=== PATIENT | male | born 1950 | race Caucasian/White ===

== ENCOUNTER 2017-10-07 14:36 | Emergency (ER) | payer MEDICARE, OTHER, SELFPAY ==
[2017-10-07 14:40] VITALS: BP 123/80; PULSE 80; RESP 18; TEMP 36.7; O2SAT 96; BMI 27.4
--- NOTE | 2017-10-07 14:44 | HMH.EDSKAF ---
ED Disposition Clinical Impression: Infected skin graft Disposition: Home, Self-Care Condition on Discharge: Fair Instructions: DI for Skin Abscess Additional Instructions: 1- wet to dry the wound twice a day. 2- start levaquin 500 mg daily. 3- call the crane mechanic in am for an earlier appointment. 4- see pcp in am for a wound recheck. Prescriptions: levoFLOXacin [Levaquin 500mg tab] 500 mg PO DAILY #10 tab - Critical Care Critical Care Time: No Attestation: On , the high probability of a clinically significant, sudden or life threatening deterioration of the following system(s) required my full and direct attention, intervention and personal management. The time I documented below is in addition to time spent performing reported procedures but includes the following listed in this critical care notation. Medical Decision Making - Medical Records Medical records reviewed: Yes: I reviewed the patient's medical records. Vital Signs: 10/07/17 14:40 Temperature 98.1 F Temperature Source Temporal Artery Scan Pulse Rate [Right Brachial] 80 Respiratory Rate 18 Blood Pressure [Right Arm] 123/80 Blood Pressure Mean [Right Arm] 94 Blood Pressure Source [Right Arm] Automatic Cuff Blood Pressure Position [Right Arm] Sitting 02 Sat by Pulse Oximetry 96 Oxygen Delivery Method Room Air - Lab Data Lab Results 10/07/17 14:50: WBC 11.8 H, RBC 5.26, Hgb 15.3, Hct 46.7, MCV 88.8, MCH 29.1, MCHC 32.8, RDW 13.0, Plt Count 396, MPV 6.8 L, Neut % (Auto) 69.1, Lymph % (Auto) 23.2, [place] % (Auto) 5.2, Eos % (Auto) 2.2, Baso % (Auto) 0.3, Neut # (Auto) 8.2 H, Lymph # (Auto) 2.7, [place] # (Auto) 0.6, Eos # (Auto) 0.3, Baso # (Auto) 0.0 10/07/17 14:50: Lactic Acid 1.2 10/07/17 14:50: Sodium 144, Potassium 3.9, Chloride 107, Carbon Dioxide 28, Anion Gap 12.9, BUN 13, Creatinine 1.06, Estimated Creat Clear 73, Estimated GFR 69, Est GFR ( Amer) 84, Glucose 119 H Result diagrams: 10/07/17 14:50 10/07/17 14:50 Orders (Tests/Meds): ED MEDICATIONS Generic Name Dose Route Start Last Admin Trade Name Rickey PRN Reason Stop Dose Admin Levofloxacin/Dextrose 500 mg in 100 mls @ 100 mls/hr 10/07/17 14:43 10/07/17 15:09 Levaquin 500mg/100ml Premix IV 10/07/17 15:42 100 mls/hr PREOP ONE Administration Protocol ORDERS Category Date Time Status Abscess Culture & Gram Stain Stat Micro 10/07/17 14:50 Received Blood Culture Stat Micro 10/07/17 14:50 Received - Chilo Inquiry Pt receiving controlled substance: No Chilo was queried for this patient: No Medical Decision Making Narrative: The patient remained stable there is no new findings I discussed with him his wound care, the need for earlier follow up tomorrwo and start a new antibiotics, he verbalized understanding. Skin/Abscess/FB HPI - General Stated complaint: skin - History of Present Illness HPI narrative: 67 years old male with history of psychiatric disorders and basal cell carcinoma status post the skin graft to the left shoulder lesion, he had a postop skin infection of the graft site started on Keflex that he finished after one week. He was seen by his crane mechanic on October 02 scheduled follow-up with them on October 11 at 11:30 AM. Brought from [facility] because the wound is infected. He has no fever no chills no generalized symptoms. MD complaint: other (infected skin graft) Onset (ago): week(s) (3 weeks) Location: LUE (Left shoulder area.) Consistency: constant Relieving factors: none Exacerbating factors: none Associated symptoms: denies other symptoms Treatments prior to arrival: other (He finished a course of antibiotic Keflex. ) - Related Data Previous Rx's Medication Instructions Recorded levoFLOXacin [Levaquin 500mg 500 mg PO DAILY #10 tab 10/07/17 tab] Allergies Allergy/AdvReac Type Severity Reaction Status Date / Time No Known Allergies Allergy Verified 10/07/17 15
--- NOTE | 2017-10-07 14:47 | ED_ITS ---
ED Disposition Clinical Impression: Infected skin graft Disposition: Home, Self-Care Condition on Discharge: Fair Instructions: DI for Skin Abscess Additional Instructions: 1- wet to dry the wound twice a day. 2- start levaquin 500 mg daily. 3- call the consultant education in am for an earlier appointment. 4- see pcp in am for a wound recheck. Prescriptions: levoFLOXacin [Levaquin 500mg tab] 500 mg PO DAILY #10 tab - Critical Care Critical Care Time: No Attestation: On , the high probability of a clinically significant, sudden or life threatening deterioration of the following system(s) required my full and direct attention, intervention and personal management. The time I documented below is in addition to time spent performing reported procedures but includes the following listed in this critical care notation. Medical Decision Making - Medical Records Medical records reviewed: Yes: I reviewed the patient's medical records. Vital Signs: 10/07/17 14:40 Temperature 98.1 F Temperature Source Temporal Artery Scan Pulse Rate [Right Brachial] 80 Respiratory Rate 18 Blood Pressure [Right Arm] 123/80 Blood Pressure Mean [Right Arm] 94 Blood Pressure Source [Right Arm] Automatic Cuff Blood Pressure Position [Right Arm] Sitting 02 Sat by Pulse Oximetry 96 Oxygen Delivery Method Room Air - Lab Data Lab Results 10/07/17 14:50: WBC 11.8 H, RBC 5.26, Hgb 15.3, Hct 46.7, MCV 88.8, MCH 29.1, MCHC 32.8, RDW 13.0, Plt Count 396, MPV 6.8 L, Neut % (Auto) 69.1, Lymph % (Auto ) 23.2, [place] % (Auto) 5.2, Eos % (Auto) 2.2, Baso % (Auto) 0.3, Neut # (Auto) 8.2 H, Lymph # (Auto) 2.7, [place] # (Auto) 0.6, Eos # (Auto) 0.3, Baso # (Auto) 0.0 10/07/17 14:50: Lactic Acid 1.2 10/07/17 14:50: Sodium 144, Potassium 3.9, Chloride 107, Carbon Dioxide 28, Anion Gap 12.9, BUN 13, Creatinine 1.06, Estimated Creat Clear 73, Estimated GFR 69, Est GFR ( Amer) 84, Glucose 119 H Result diagrams: 10/07/17 14:50 10/07/17 14:50 Orders (Tests/Meds): ED MEDICATIONS Generic Name Dose Route Start Last Admin Trade Name Rickey PRN Reason Stop Dose Admin Levofloxacin/Dextrose 500 mg in 100 mls @ 100 mls/hr 10/07/17 14:43 10/07/17 15:09 Levaquin 500mg/100ml Premix IV 10/07/17 15:42 100 mls/hr PREOP ONE Administration Protocol ORDERS Category Date Time Status Abscess Culture & Gram Stain Stat Micro 10/07/17 14:50 Received Blood Culture Stat Micro 10/07/17 14:50 Received - Chilo Inquiry Pt receiving controlled substance: No Chilo was queried for this patient: No Medical Decision Making Narrative: The patient remained stable there is no new findings I discussed with him his wound care, the need for earlier follow up tomorrwo and start a new antibiotics , he verbalized understanding. Skin/Abscess/FB HPI - General Stated complaint: skin - History of Present Illness HPI narrative: 67 years old male with history of psychiatric disorders and basal cell carcinoma status post the skin graft to the left shoulder lesion, he had a postop skin infection of the graft site started on Keflex that he finished after one week. He was seen by his consultant education on October 02 scheduled follow-up with them on October 11 at 11:30 AM. Brought from [facility] because the wound is infected. He has no fever
[2017-10-07 15:05] LABS: Basophils % 0.3 % (0.1-2.0); Eosinophils # 0.3 K/mm3 (0.0-0.4); Eosinophils % 2.2 % (0.1-12.0); Hematocrit 46.7 % (42.0-52.0); Hemoglobin 15.3 g/dL (14.1-18.0); Lymphocytes # 2.7 K/mm3 (0.7-4.5); Lymphocytes % 23.2 K/mm3 (10-50); Mean Corpuscular HGB Conc 32.8 g/dL (31.8-35.4); Mean Corpuscular Hemoglobin 29.1 pg (27.0-31.2); Mean Corpuscular Volume 88.8 fl (80-94); Mean Platelet Volume 6.8 fl (7.4-10.4); Monocytes # 0.6 K/mm3 (0.1-1.0); Monocytes % 5.2 % (1.7-9.3); Neutrophils # 8.2 K/mm3 (1.8-7.8); Neutrophils % 69.1 % (37.0-80.0); Platelet Count 396 K/mm3 (142-424); Red Blood Count 5.26 M/mm3 (4.60-6.20); White Blood Count 11.8 K/mm3 (4.8-10.8)
[2017-10-07 15:13] LABS: Anion Gap 12.9 mEq/L (5-15); Blood Urea Nitrogen 13 mg/dL (7-18); Carbon Dioxide 28 mmol/L (21.0-32.0); Chloride 107 mmol/L (98-107); Creatinine Clearance Estimated 73 mL/min (0-300); Creatinine,Serum 1.06 mg/dL (0.70-1.30); Estimated Glomerular Filt Rate 69 ml/min (>60); GFR (African American) 84 ML/MIN (>60); Glucose 119 mg/dL (74-106); Potassium 3.9 mmoL/L (3.5-5.1); Sodium 144 mmol/L (136-145)
[2017-10-07 15:22] LABS: Lactic Acid 1.2 mmol/L (0.4-2.0)
[2017-10-07 15:56] VITALS: BP 129/48; PULSE 90; RESP 18; TEMP 36.8; O2SAT 98
== END 2017-10-07 17:01 | disposition home or self-care (01) ==
PROVIDERS: Emergency Provider Emergency Medicine
DX: T86.822 Skin graft (allograft) (autograft) infection (principal)
CPT/HCPCS: 80048; 83605; 85025; 87040; 87070; 87205; 96365; 99282; J1956

== ENCOUNTER → 2020-02-17 09:15 | Outpatient (POV) | payer MEDICARE, MEDICAID, SELFPAY | PROVIDERS: Visit Provider Dermatology | DX: Z00.00 Encounter for general adult medical examination without abnormal findings (principal) ==

== ENCOUNTER → 2020-03-09 10:34 | Outpatient (POV) | payer MEDICARE, MEDICAID, SELFPAY | PROVIDERS: PCP Emergency Medicine; Visit Provider Dermatology | DX: Z00.00 Encounter for general adult medical examination without abnormal findings (principal) ==

== ENCOUNTER → 2023-08-01 15:16 | Outpatient (POV) | payer MEDICARE, MEDICAID, SELFPAY | PROVIDERS: Visit Provider Specialist/Technologist | DX: Z00.00 Encounter for general adult medical examination without abnormal findings (principal) ==

== ENCOUNTER 2024-10-05 10:08 | Emergency (ER) | payer MEDICARE, MEDICAID, SELFPAY ==
[2024-10-05] VITALS (9 sets, daily range): BP systolic 110–136; BP diastolic 53–106; PULSE 82–104; RESP 17–34; TEMP 36.7; O2SAT 92–99; BMI 19.5
--- NOTE | 2024-10-05 10:12 | CT_ITS ---
PROCEDURE INFORMATION: Exam: CT Head Without Contrast Exam date and time: 10/05/2024 10:45 AM Age: 74 years old Clinical indication: Injury or trauma; Fall; Other: Pain; Additional info: Fall, posterior trauma TECHNIQUE: Imaging protocol: Computed tomography of the head without contrast. Radiation optimization: All CT scans at this facility use at least one of these dose optimization techniques: automated exposure control; mA and/or kV adjustment per patient size (includes targeted exams where dose is matched to clinical indication); or iterative reconstruction. COMPARISON: CT HEAD/BRAIN WO CON 10/05/2024 10:45 AM FINDINGS: Brain: Cunningham-white matter differentiation and sulcation pattern is normal. There is normal density in the basal ganglia and thalamus. There is no intracranial hemorrhage. There are no pathologic extra-axial fluid collections. Cerebral ventricles: No ventriculomegaly. Paranasal sinuses: There is mild mucosal thickening in the paranasal sinuses. Mastoid air cells: Visualized mastoid air cells are well aerated. Bones: Unremarkable. No acute fracture. Soft tissues: There is scalp laceration in the left parietal region. IMPRESSION: 1. No acute intracranial pathology. 2. Scalp laceration in the left parietal region.
--- NOTE | 2024-10-05 10:12 | CT_ITS ---
PROCEDURE INFORMATION: Exam: CT Cervical Spine Without Contrast Exam date and time: 10/05/2024 10:47 AM Age: 74 years old Clinical indication: Injury or trauma; Fall; Other: Pain TECHNIQUE: Imaging protocol: Computed tomography of the cervical spine without contrast. Radiation optimization: All CT scans at this facility use at least one of these dose optimization techniques: automated exposure control; mA and/or kV adjustment per patient size (includes targeted exams where dose is matched to clinical indication); or iterative reconstruction. COMPARISON: CT HEAD/BRAIN WO CON 10/05/2024 10:45 AM FINDINGS: Bones: There is normal alignment of the cervical spine. The vertebral body heights are maintained. There is no spondylolisthesis. Craniocervical relationship is maintained. There are no fractures or dislocations. Lungs: Lung apices are normal. Soft tissues: Unremarkable. IMPRESSION: No evidence of osseous injury to the cervical spine.
--- NOTE | 2024-10-05 10:13 | HMH.EDGENADL ---
Discharge Plan Disposition Patient Disposition: Home, Self-Care Chief Complaint: Fall Prescriptions Prescriptions: No Action simvastatin 40 mg tablet 40 mg PO HS citalopram 20 mg tablet 20 mg PO DAILY mirtazapine 15 mg tablet 15 mg PO HS quetiapine 25 mg Tablet 25 mg PO DIRECTED Rx Instructions: Give 1 tablet by mouth every 4 hours as needed for agitation loperamide 2 mg Capsule 2 mg PO Q6H PRN (Reason: Diarrhea) ibuprofen 800 mg Tablet 800 mg PO Q6H PRN (Reason: Pain) ondansetron HCl [Zofran] 4 mg Tablet 4 mg PO Q6H PRN (Reason: nausea or vomiting) sennosides-docusate sodium [Senexon-S] 8.6-50 mg tablet 1 tab PO HS quetiapine 100 mg tablet 100 mg PO HS lisinopril 10 mg tablet 10 mg PO DAILY quetiapine 50 mg tablet 50 mg PO DAILY cholecalciferol (vitamin D3) 1,250 mcg (50,000 unit) capsule 1,250 mcg PO WEEKLY Rx Instructions: takes on SUNDAY Referrals Follow up/Referrals: Provider,Referral, MD [Primary Care Provider] - See instructions Activity Restrictions/Add. Instructions Additional Instructions/Restrictions: At this time it was felt you are safe to be discharged home. If new or worsening symptoms please do not hesitate to return the emergency department. Please follow-up with your family doctor in 10 days to have your teresa removed. Clinical Impressions Clinical Impression: Laceration of scalp, Fall, Blunt head trauma Print Language Print Language: Tuvaluan Discharge ED Provider: Herminio Hills General Adult HPI General Chief complaint: Fall Stated complaint: fall Time Seen by Provider: 10/05/24 10:12 History of Present Illness HPI narrative: Patient is a 74-year-old male with past medical history of dementia normally oriented to person and place at baseline who presents emergency department for evaluation of a ground-level fall. Patient fell on the second floor, unwitnessed, he remembers striking his head on the floor, is unsure how he fell. He is at his mental baseline and walked down to EMS when they picked him up. C-collar placed in the field. He is complaining only of hurting on the back of his head. No other acute complaints at this time. Last Tdap unknown Please note that above description of symptoms, in this electronic medical record under categorization of recalled from ER triage doctor by RN are reflective of an initial nursing assessment, however, is not reflective of my full history and physical exam that was personally taken and clarified. Consequentially, this preceding description of symptoms, which may include the patient's categorized chief complaint in the EMR, do not reflect my personal clinical impression, and the ultimate description of history of present illness and patient stated complaints should be deferred to this section of the note. Unless stated otherwise or congruent with this section of the note, additional signs, symptoms, or incongruence should be interpreted as inaccurate with my clinical impression. Related Data Home Medications ?Medication ?Instructions ?Recorded ?Confirmed citalopram 20 mg tablet 20 mg PO DAILY 08/09/23 10/05/24 mirtazapine 15 mg tablet 15 mg PO HS 08/09/23 10/05/24 simvastatin 40 mg tablet 40 mg PO HS 08/09/23 10/05/24 cholecalciferol (vitamin D3) 1,250 1,250 mcg PO WEEKLY 10/05/24 10/05/24 mcg (50,000 unit) capsule ibuprofen 800 mg tablet 800 mg PO Q6H PRN Pain 10/05/24 10/05/24 lisinopril 10 mg tablet 10 mg PO DAILY 10/05/24 10/05/24 loperamide 2 mg capsule 2 mg PO Q6H PRN Diarrhea 10/05/24 10/05/24 ondansetron HCl 4 mg tablet 4 mg PO Q6H PRN nausea or vomiting 10/05/24 10/05/24 quetiapine 100 mg tablet 100 mg PO HS 10/05/24 10/05/24 quetiapine 25 mg tablet 25 mg PO DIRECTED 10/05/24 10/05/24 quetiapine 50 mg tablet 50 mg PO DAILY 10/05/24 10/05/24 sennosides 8.6 mg-docusate sodium 1 tab PO HS 10/05/24 10/05/24 50 mg tablet (Senexon-S) Allergies Allergy/AdvReac Type Severity Reaction Status Date / Time No Known Allergies Allergy Verified 10/05/24 10:22 [facility] Disclaimer: The information contained in this section may have been updated after the patient was seen, as this information can be updated by other users. Medical History (Updated 10/05/24 @ 11:28 by Herminio Hills MD) HTN (hypertension) HLD (hyperlipidemia) Schizoaffective disorder Otitis externa Impacted cerumen Hearing loss Social History Smoking Status: Former smoker alcohol intake: never current occupational status: disabled Travel in the last 8 weeks: None Have you lived/traveled outside [place] in past 30 days?: No Contact w/someone who lives/traveled outside US past 30 days?: No Exposure to someone with infectious disease in past 14 days?: No Do you have a fever (greater than 100.4 F or 38 C)?: No Have you tested positive for COVID-19: No Exposed to someone with COVID-19 in past 14 days?: No Do you have a sore throat?: No Do you have a cough?: No Do you have any weakness?: No Do you have any diarrhea?: No Are you experiencing any unusual bleeding?: No Do you have any muscle aches/pain?: No Do you have any abdominal pain?: No Are you experiencing loss of taste or smell?: No Other Medical History Have you received the Pneumonia Vaccine: No ROS Obtained: Yes Systems reviewed as appropriate & no additional complaints except as documented Physical Exam General General appearance: alert and in no apparent distress Head Head exam: normocephalic and other (Bleeding over the left vertex of the scalp that is largely hemostatic with matted hair, there appears to be a 6 cm jagged laceration with oozing of blood.) Eye Eye exam: Present PERRL and EOMI ENT ENT exam: Present mucous membranes moist Neck Neck exam: Present normal inspection; Absent tenderness (No midline tenderness, c-collar in place) Chest Chest inspection: Present normal inspection and symmetric chest wall rise Respiratory Respiratory exam: Present normal lung sounds bilaterally; Absent respiratory distress Cardiovascular Cardiovascular exam: Present regular rate and normal rhythm Abdominal Exam Abdominal exam: Present soft; Absent tenderness Extremities Exam Extremities exam: Present normal inspection; Absent tenderness Neurological Exam Neurological exam: Present alert; Absent oriented X3 (Alert and oriented to place and person) Psychiatric Psychiatric exam: Present normal affect Skin Skin exam: Present warm and dry Medical Decision Making Medical Records Screening: Per USPSTF and CDC recommendations, given the prevalence of disease in our region, it is our hospital?s policy to screen for HIV and viral Hepatitis for all patients aged 18 and over and those with ongoing risk factors. Chilo Inquiry Pt receiving controlled substance: No Vital Signs: 10/05/24 10:08 10/05/24 10:15 10/05/24 10:56 Temperature 98.1 F Temperature Source Oral Pulse Rate 99 H 91 H Pulse Rate [Right] 104 H Respiratory Rate 24 23 29 H Blood Pressure 112/53 L 132/106 H Blood Pressure [Right Arm] 123/61 Blood Pressure Mean [Right Arm] 81 Blood Pressure Source [Right Arm] Automatic Cuff 02 Sat by Pulse Oximetry 95 93 L 93 L Oxygen Delivery Method Room Air Room Air Room Air 10/05/24 11:00 Temperature Temperature Source Pulse Rate 96 H Pulse Rate [Right] Respiratory Rate 23 Blood Pressure 136/63 Blood Pressure [Right Arm] Blood Pressure Mean [Right Arm] Blood Pressure Source [Right Arm] 02 Sat by Pulse Oximetry 99 Oxygen Delivery Method Room Air Orders (Tests/Meds): ED MEDICATIONS Discontinued Medications Generic Name Dose Route Start Last Admin Trade Name Freq PRN Reason Stop Dose Admin Tetanus/Reduced Diphtheria/Acell Pertussis 0.5 ml 10/05/24 10:12 10/05/24 10:47 Tet/Diphth/Pert-Adult 0.5ml Syringe IM 10/05/24 10:13 0.5 ml .ONCE ONE Administration ORDERS Category Date Time Status CT cervical spine wo con Stat Cat Scan 10/05/24 10:[address] head/brain wo con Stat Cat Scan 10/05/24 10:12 Completed HIV Combo Stat Lab 10/05/24 10:39 Ordered Hepatitis C Ab Qual. W/ RFX Stat Lab 10/05/24 10:39 Ordered EKG Request [ECG Request] Stat Y 10/05/24 10:18 Ordered ECG Data Tracing #1: Independently interpreted by me rate is 84, rhythm is regular, axis is leftward deviated, no ST elevation in topical contiguous leads, bifascicular block, QTc 415 Medical Decision Narrative: In summary patient is 74-year-old male with past medical history described above who presents emergency department for evaluation of traumatic injury sustained in a fall. Patient is hemodynamically stable nontoxic-appearing upon arrival, afebrile and at his mental baseline. Differential includes intracranial hemorrhage, fracture, among others. He does not have recurrent syncope and I suspect he had a mechanical fall. EKG will be obtained. Trauma survey will be conducted with noncontrasted CT scan of the head and cervical spine. Based on history and physical exam imaging of the thorax was considered as well as hematologic labs but will be deferred at this time. Tdap will be updated. Wound will be cleaned and assessed to see how it needs to be repaired. Noncontrasted CT scan informally visualized by me, no acute large intraparenchymal hemorrhage. Formal read shows no acute intracranial pathology. Upon repeat evaluation patient continued to be well-appearing, cervical spine cleared. Patient is appropriate for discharge at this time was given return precautions. Procedure: Procedure performed was laceration repair. Procedure performed by Herminio Hills. Wound was numbed with lidocaine 1% with epinephrine, anesthesia achieved. It was cleaned with Hibiclens and water and irrigated with sterile water. Site of laceration was left vertex of scalp, 6 cm jagged shape. 6 teresa were placed and wound was well-approximated hemostasis achieved. Nonstick dressing applied and gauze wrap placed over top. Patient tolerated the procedure well. There were no immediate complications. Critical Care Critical Care Time Critical Care Time: No
--- NOTE | 2024-10-05 10:42 | PC.NURSE ---
PT TO CT
--- NOTE | 2024-10-05 10:46 | PC.NURSE ---
ROUNDED ON THE PT. THE PT VOICES THAT HE DOES NOT NEED ANYTHING AT THIS TIME. CALL LIGHT IS WITHIN REACH OF THE PT.
[2024-10-05] MEDS: TET/DIPHTH/PERT-ADULT 0.5ML SYRINGE 0.5 ML IM (10:47)
--- NOTE | 2024-10-05 10:50 | PC.NURSE ---
PT RETURNED FROM CT
--- NOTE | 2024-10-05 10:50 | PC.NURSE ---
Pt back in room from ct scan
--- NOTE | 2024-10-05 10:54 | ECG_ITS ---
APPROVED REPORT Exam: Resting ECG HR:84 bpm ECG Measurements Heart Rate 84 AXES CA 152 P 14 QRSd 134 QRS -71 QT 374 T 69 QTc 415 Conclusion SINUS RHYTHM RIGHT BUNDLE BRANCH BLOCK [120+ ms QRS DURATION, UPRIGHT V1, 40+ ms S IN I/aVL/V4/V5/V6] LEFT ANTERIOR FASCICULAR BLOCK [QRS AXIS <= -45, QR IN I, RS IN II] POSSIBLE ANTERIOR MYOCARDIAL INFARCTION , OF INDETERMINATE AGE [30 ms Q WAVE IN V3/V4, OR R < 0.2 mV IN V4] ABNORMAL ECG Electronically signed by : JABARI TALBOT, 10/05/2024 14:29:47
--- NOTE | 2024-10-05 11:16 | PC.NURSE ---
ROUNDED ON THE PT. THE PT VOICES THAT HE DOES NOT NEED ANYTHING AT THIS TIME. CALL LIGHT IS WITHIN REACH OF THE PT.
--- NOTE | 2024-10-05 12:07 | PC.NURSE ---
CALLED FRANCISCO SUAREZ @[phone] TO PICK PT UP.
--- NOTE | 2024-10-05 12:24 | PC.NURSE ---
ROUNDED ON THE PT. THE PT VOICES THAT HE DOES NOT NEED ANYTHING AT THIS TIME. CALL LIGHT IS WITHIN REACH OF THE PT.
--- NOTE | 2024-10-05 13:17 | PC.NURSE ---
ATTEMPTED TO CONTACT ERICKA AGAIN TO PICK PT UP, NO ANSWER. [facility] CAREER SERVICES OFFICER NOTIFIED FOR ASSISTANCE
--- NOTE | 2024-10-05 13:33 | PC.NURSE ---
Shirley, chips, and snack given to pt. Octaviano Mooney rep here to escort pt back to facility.
== END 2024-10-05 13:33 | disposition home or self-care (01) ==
PROVIDERS: Emergency Provider Emergency Medicine
DX: S01.01XA Laceration without foreign body of scalp, initial encounter (principal); S09.8XXA Other specified injuries of head, initial encounter; R51.9 Headache, unspecified; Z23 Encounter for immunization; W18.30XA Fall on same level, unspecified, initial encounter; Y93.9 Activity, unspecified; Y92.9 Unspecified place or not applicable
CPT/HCPCS: 12002; 70450; 72125; 90471; 90715; 93005; 99284